=== PATIENT | female | born 1990 | race Caucasian/White ===

== ENCOUNTER 2018-11-07 12:46 | Inpatient (IN) | payer MEDICAID ==
[~2018-11-07] VITALS: Ht 162.6 cm; Wt 56.7 kg
[2018-11-07] MEDS ORDERED: MAGNESIUM SULFATE 2 GM, MULTIVITAMINS 10 ML, THIAMINE 100 MG, FOLIC ACID 1 MG in SOD CH... IV STA (15:18)
[2018-11-07] MEDS ORDERED: SOD CHLORIDE 0.9% 1,000 ML IV STA (15:18)
[2018-11-07] MEDS ORDERED: LORAZEPAM 2 MG INJ IV STA (15:18)
[2018-11-07] MEDS ORDERED: LEVETIRACETAM 1000 MG (PMX) 100 ML IVPB STA (15:21)
[2018-11-07] MEDS ORDERED: LORAZEPAM 2 MG INJ IV ONE ×2 (16:30→22:00)
[2018-11-07] MEDS ORDERED: NITROFURANTOIN (SR) 100 MG CAP PO ONE (18:30)
[2018-11-07] MEDS ORDERED: CHLORDIAZEPOXIDE 25 MG CAP PO ONE (18:30)
[2018-11-07] MEDS ORDERED: POTASSIUM CHLORIDE 100 ML IVPB ONE (18:30)
[2018-11-07] MEDS ORDERED: THIAMINE 100 MG TAB PO ONE (19:00)
--- NOTE | 2018-11-07 19:50 | ERD ---
ER Documentation Chief Complaint Chief Complaint PSYCH GARTH, STATES HAVING SEIZURES, DENIES SI/HI HPI This is a 28-year-old female is brought into the emergency department by her boyfriend. The patient has a remote history of bulimia and anorexia. She also has a history of alcohol abuse. Her boyfriend brought her in because he was concerned that she appeared more confused. He stated she is been hallucinating for the past several days. The patient indicates that her last consumption of alcohol 6 days prior to arrival. She did have a witnessed tonic-clonic seizure 24 hours ago. The patient denies a headache. She said no fevers no shaking no chills. She denies any neck pain. Her boyfriend states she believes she is b een placed on Keppra as she has had withdrawal seizures in the past. The patient cannot remember the medications that she took. She does believe she also took Ativan. The patient denies any suicidal homicidal thoughts or ideations. ROS All systems reviewed and are negative except as per history of present illness. Allergies Allergies: Uncoded Allergies: PENICILLIN (Allergy, Unknown, unraised red skin, diarrhea, flushed sensation, 11/07/18) PMhx/Soc History of Surgery: No Anesthesia Reaction: No Hx Neurological Disorder: Yes (Seizures (DT's) Epilepsi unk) Hx Respiratory Disorders: No Hx Cardiac Disorders: No Hx Psychiatric Problems: Yes (Eating disorder, Anxiety, Depression) Hx Miscellaneous Medical Probl: No Hx Alcohol Use: Yes Hx Substance Use: Yes (Marijuana) Hx Tobacco Use: Yes Smoking Status: Current some day smoker Physical Exam Vitals Vital Signs Date Temp Pulse Resp B/P (MAP) Pulse Ox O2 O2 Flow FiO2 Time Delivery Rate 11/07/18 98.0 94 16 109/68 97 Room Air 17:00 (82) 11/07/18 98.0 117 18 117/87 99 Room Air 15:00 (97) 11/07/18 98.0 127 18 153/63 99 13:00 (93) Physical Exam Constitutional:Well-developed. Well-nourished. HEENT:Normocephalic. Atraumatic no nasal septal hematoma no hemotympanum .Pupils were equal round reactive to light. Moist mucous membranes.No tonsillar exudates. Neck: No nuchal rigidity. No lymphadenopathy. No posterior cervical spine tenderness or step-offs. Respiratory: Not using accessory muscles of respiration.Lungs were clear to auscultation bilaterally. No rhonchi. No rales. No wheezing. Cardiovascular: Regular rate regular rhythm.No murmurs. No rubs were appreciated.S1, S2 normal. Distal pulses are palpable 2+ bilaterally. GI: Abdomen was soft. Nontender. Non Distended. No pulsatile abdominal masses or bruits. No rebound. No guarding. Bowel sounds were present and normal. Muscle skeletal: Full range of motion of both the upper and lower extremities bilaterally.Normal muscle tone.No assymetrical calf tenderness or swelling. Skin: No petechia, no purpura. No lesions on the palms or the soles of the feet. No maculopapular rash. NEURO: Patient was alert, awake, orientated x3.No facial droop. Gait observed and normal with no ataxia.Speech had regular rate and rhythm. No focal neurological deficits. PSYCH: The patient is not experiencing any suicidal homicidal thoughts or ideations. The patient is experiencing tactile and visual hallucinations. Result Diagram: 11/07/18 1532 11/07/18 1532 Results 24 hrs Laboratory Tests Test 11/07/18 15:32 White Blood Count 8.3 10^3/ul Red Blood Count 3.18 10^6/ul Hemoglobin 11.9 g/dl Hematocrit 34.6 % Mean Corpuscular Volume 108.8 fl Mean Corpuscular Hemoglobin 37.4 pg Mean Corpuscular Hemoglobin Concent 34.4 g/dl Red Cell Distribution Width 11.8 % Platelet Count 128 10^3/UL Mean Platelet Volume 10.8 fl Immature Granulocytes % 0.700 % Neutrophils % % Segmented Neutrophils % (Manual) 75 % Lymphocytes % % Lymphocytes % (Manual) 14 % Reactive Lymphocytes % (Manual) 2 % Monocytes % % Monocytes % (Manual) 9 % Eosinophils % % Basophils % % Nucleated Red Blood Cells % 0.0 /100WBC Immature Granulocytes # 0.060 10^3/ul Neutrophils # 10^3/ul Lymphocytes (Manual) 1.1 10^3/ul Lymphocytes # 10^3/ul Reactive Lymphocytes # 0.1 10^3/ul Monocytes # 10^3/ul Monocytes # (Manual) 0.7 10^3/ul Eosinophils # 10^3/ul Basophils # 10^3/ul Nucleated Red Blood Cells # 10^3/ul Platelet Estimate NORMAL Giant Platelets 7 % Anisocytosis 1+ Macrocytosis 1+ Prothrombin Time 13.0 Sec Prothrombin Time Ratio 1.0 INR International Normalized Ratio 0.97 Activated Partial Thromboplast Time 26.5 Sec Urine Color RANDALL Urine Clarity CLOUDY Urine pH 5.0 Urine Specific [place] 1.026 Urine Ketones 1+ mg/dL Urine Nitrite NEGATIVE mg/dL Urine Bilirubin NEGATIVE mg/dL Urine Urobilinogen NEGATIVE mg/dL Urine Leukocyte Esterase 1+ Jesus/ul Urine Microscopic RBC 1 /HPF Urine Microscopic WBC 13 /HPF Urine Squamous Epithelial Cells MANY /HPF Urine Mucus FEW /HPF Urine Hemoglobin NEGATIVE mg/dL Urine Glucose NEGATIVE mg/dL Urine Total Protein 2+ mg/dl Urine Test NEGATIVE Sodium Level 137 mmol/L Potassium Level 2.9 mmol/L Chloride Level 93 mmol/L Carbon Dioxide Level 26 mmol/L Anion Gap 18 Blood Urea Nitrogen 16 mg/dl Creatinine 0.59 mg/dl Est Glomerular Filtrat Rate mL/min > 60 mL/min Glucose Level 90 mg/dl Calcium Level 10.6 mg/dl Total Bilirubin 1.2 mg/dl Direct Bilirubin 0.00 mg/dl Indirect Bilirubin 1.2 mg/dl Aspartate Amino Transf (AST/SGOT) 108 IU/L Alanine Aminotransferase (ALT/SGPT) 66 IU/L Alkaline Phosphatase 104 IU/L Total Protein 9.1 g/dl Albumin 5.2 g/dl Globulin 3.90 g/dl Albumin/Globulin Ratio 1.33 Salicylates Level < 1.0 mg/dl Urine Opiates Screen Negative Acetaminophen Level < 10.0 ug/ml Urine Barbiturates Negative Urine Amphetamines Screen Negative Urine Benzodiazepines Screen Negative Urine Cocaine Screen Negative Urine Cannabinoids Positive Ethyl Alcohol Level < 10.0 mg/dl Current Medications Medications Dose Sig/Erasmo Start Time Status Last (Trade) Ordered Route PRN Stop Time Admin Dose Reason Admin Sodium 1,000 ml @ Q1H STAT 11/07/18 DC 11/07/18 Chloride 1,000 mls/hr IV 15:18 11/07/18 16:11 16:17 Magnesium 1,015.2 ml Q2H2M STAT 11/07/18 DC 11/07/18 Sulfate 2 @ 500 mls/ IV 15:18 11/07/18 16:09 gm/ hr 17:19 Multivitamins 10 ml/Thiamine HCl 100 mg/Folic Acid 1 mg/Sodium Chloride Lorazepam 1 mg ONCE STAT 11/07/18 DC 11/07/18 (Ativan) IV 15:18 11/07/18 16:09 15:21 100 ml @ ONCE STAT 11/07/18 DC 11/07/18 Levetiracetam 400 mls/hr IVPB 15:21 11/07/18 16:09 15:35 Lorazepam 1 mg ONCE ONCE 11/07/18 DC 11/07/18 (Ativan) IV 16:30 11/07/18 16:34 16:31 Potassium 100 ml @ ONCE ONCE 11/07/18 11/07/18 Chloride 50 mls/hr IVPB 18:30 11/07/18 18:42 20:29 100 mg ONCE ONCE 11/07/18 DC 11/07/18 Nitrofurantoi PO 18:30 11/07/18 18:42 n 18:31 Macrocrystals (Macrobid) 75 mg ONCE ONCE 11/07/18 DC 11/07/18 Chlordiazepox PO 18:30 11/07/18 18:42 sanjay 18:32 (Librium) Thiamine 100 mg ONCE ONCE 11/07/18 DC HCl PO 19:00 11/07/18 (Vitamin B1) 19:01 Procedures/MDM The patient presented to the emergency department with an acute and persistent c hange in their mental status. The differential diagnosis is diverse however reversible causes such as hypoglycemia, opiate overdose, thiamine deficiency were immediately considered. The patient was placed on a court monitor, continuous pulse oximetry and IV access was established. The patients airway was secure however hypoxic events such as anemia, shock, or severe pulmonary disease were all considered as etiologies in this patients presentation. Circulation assessed with good cap refill and did not require fluids or pressure support. Finger stick for rapid glucose determined to be normal. I did obtain a CT scan the patient said there is no intracerebral hemorrhage mass-effect or midline shift. The patient no physical exam findings to suggest meningitis that she was afebrile with no nuchal rigidity and denied cephalgia. The patient's boyfriend was present for the examination was able to provide a significant amount of history. They live together and have been a couple for over 1 year. He indicates that the patient does have a severe alcohol problem and has been abstinent from alcohol for roughly 6 days. The patient stated that she had been on Keppra and stated she had epilepsy. However the boyfriend stated that he believes her seizures were result of alcohol withdrawal. She did receive IV Keppra in the emergency department. The patient serum ethanol was undetected. It was concern that the patient could be experiencing delirium tremors as well as Warnicke's encephalopathy. She did receive vitamin B1 to supplement for possible Warnicke's encephalopathy. She also received Ativan and she also became very agitated. She was given Librium and a banana bag. The patient was also given IV potassium to for treatment of her hypokalemia with a potassium of 2.9 12 Lead EKG tracing ordered and reviewed by myself showed: Normal sinus rhythm of 85 bpm and no arrhythmia. IA interval normal. QRS duration normal. No ST segment elevation No ST segment depression. No changes consistent with acute ischemia. Critical Care: Time: 80 minutes Treatments/Evaluations: Close monitoring and treatment of unstable vital signs, cardiorespiratory, and neurologic status, while maintaining tight balance of fluid, respiratory, and cardiac interventions. Time does not include performing any of the above billable procedures. Departure Diagnosis: Primary Impression: Alcohol withdrawal with delirium Additional Impressions: Hypokalemia DTs (delirium tremens) Condition: Serious ESTER TAVAREZ MD Nov 07, 2018 19:47
[2018-11-07] MEDS ORDERED: ACETAMINOPHEN 325 MG TAB PO PRN ×2 (20:00→23:00)
[2018-11-07] MEDS ORDERED: ONDANSETRON 4 MG INJ IV PRN ×2 (20:00→23:00)
[2018-11-07 22:00] VITALS: PULSE 80
[2018-11-07 22:07] VITALS: BP 110/79; RESP 18; Ht 162.6 cm; Wt 56.7 kg
[2018-11-07] MEDS ORDERED: DOCUSATE SODIUM 100 MG CAP PO PRN (23:00)
[2018-11-07] MEDS ORDERED: hydrALAzine 20 MG INJ IV PRN (23:00)
[2018-11-07] MEDS ORDERED: HYDROCODONE/APAP (5/325) TAB PO PRN (23:00)
[2018-11-07] MEDS ORDERED: ALBUTEROL/IPRATROPIUM (NEB) 3 ML AMP HHN PRN (23:00)
[2018-11-07] MEDS ORDERED: NACL 0.9% 3 ML SYG IV SCH (23:00)
[2018-11-07] MEDS ORDERED: NITROGLYCERIN (SL) 0.4 MG TAB SL PRN (23:00)
[2018-11-07] MEDS ORDERED: MAGNESIUM HYDROXIDE 30ML CUP PO PRN (23:00)
[2018-11-07] MEDS ORDERED: morphine 2 MG INJ IV PRN (23:00)
[2018-11-07] MEDS ORDERED: LORAZEPAM 2 MG INJ IV PRN ×2 (23:00)
[2018-11-07] MEDS: SOD CHLORIDE 0.9% 1,000 ML IV SCH (23:03)
[2018-11-07] MEDS: LEVOFLOXACIN 750MG/D5W (PMX) 150 ML IVPB SCH (23:03)
[2018-11-07] MEDS: FAMOTIDINE 20 MG INJ IV SCH (23:12)
[2018-11-08] VITALS (11 sets, daily range): BP systolic 99–129; BP diastolic 71–93; PULSE 80–104; RESP 16–20
[2018-11-08] MEDS: LEVETIRACETAM 1000 MG (PMX) 100 ML IVPB SCH ×2 (00:41→08:33)
[2018-11-08] MEDS ORDERED: CEPASTAT LOZENGE MT PRN (04:00)
--- NOTE | 2018-11-08 04:24 | HP ---
Date/Time of Note Date/Time of Note DATE: 11/08/18 TIME: 04:17 Assessment/Plan VTE Prophylaxis SCD applied (from Nsg): No SCD contraindicated: other Pharmacological prophylaxis: heparin Lines/Catheters IV Catheter Type (from Nrsg): Peripheral IV Urinary Cath still in place: No Assessment/Plan Hospital Course Assessment and plan: 28-year-old female past with history of eating disorder, anxiety and depression, alcohol abuse, who presents with confusion and altered mental status, likely secondary to alcohol use, also with seizure activity. 1. Altered mental status: Again likely secondary to alcohol use, there is also could be a postictal component since the patient apparently may have seized prior to admission. -Continue neuro checks on the patient, obtain social services specialist consult, add Librium 3 times daily and Ativan q. 30 minutes as needed seizure activity -We will obtain EEG and consider neurology consult as well since she apparently did have seizure activity continue with IV Keppra twice daily as well -Again for alcohol use, banana bag, she did receive thiamine in the ER, Librium and Ativan. 2. Anxiety depression: Given patient's recent bout with alcohol, history of eating disorder, and history of anxiety depression there is a telemetry psychiatry consult pending, follow-up results of this Result Diagram: 11/07/18 1532 11/07/18 1532 Results 24hrs Laboratory Tests Test 11/07/18 15:32 White Blood Count 8.3 Red Blood Count 3.18 L Hemoglobin 11.9 L Hematocrit 34.6 L Mean Corpuscular Volume 108.8 H Mean Corpuscular Hemoglobin 37.4 H Mean Corpuscular Hemoglobin Concent 34.4 Red Cell Distribution Width 11.8 Platelet Count 128 L Mean Platelet Volume 10.8 H Immature Granulocytes % 0.700 H Neutrophils % Segmented Neutrophils % (Manual) 75 Lymphocytes % Lymphocytes % (Manual) 14 L Reactive Lymphocytes % (Manual) 2 H Monocytes % Monocytes % (Manual) 9 Eosinophils % Basophils % Nucleated Red Blood Cells % 0.0 Immature Granulocytes # 0.060 H Neutrophils # Lymphocytes (Manual) 1.1 Lymphocytes # Reactive Lymphocytes # 0.1 H Monocytes # Monocytes # (Manual) 0.7 Eosinophils # Basophils # Nucleated Red Blood Cells # Platelet Estimate NORMAL Giant Platelets 7 H Anisocytosis 1+ Macrocytosis 1+ Prothrombin Time 13.0 Prothrombin Time Ratio 1.0 INR International Normalized Ratio 0.97 Activated Partial Thromboplast Time 26.5 Urine Color RANDALL Urine Clarity CLOUDY A Urine pH 5.0 Urine Specific [place] 1.026 Urine Ketones 1+ H Urine Nitrite NEGATIVE Urine Bilirubin NEGATIVE Urine Urobilinogen NEGATIVE Urine Leukocyte Esterase 1+ H Urine Microscopic RBC 1 Urine Microscopic WBC 13 H Urine Squamous Epithelial Cells MANY A Urine Mucus FEW A Urine Hemoglobin NEGATIVE Urine Glucose NEGATIVE Urine Total Protein 2+ H Urine Test NEGATIVE Sodium Level 137 Potassium Level 2.9 *L Chloride Level 93 L Carbon Dioxide Level 26 Anion Gap 18 H Blood Urea Nitrogen 16 Creatinine 0.59 Est Glomerular Filtrat Rate mL/min > 60 Glucose Level 90 Calcium Level 10.6 H Total Bilirubin 1.2 Direct Bilirubin 0.00 Indirect Bilirubin 1.2 H Aspartate Amino Transf (AST/SGOT) 108 H Alanine Aminotransferase (ALT/SGPT) 66 Alkaline Phosphatase 104 Total Protein 9.1 H Albumin 5.2 H Globulin 3.90 H Albumin/Globulin Ratio 1.33 Free Thyroxine 1.34 Salicylates Level < 1.0 L Urine Opiates Screen Negative Acetaminophen Level < 10.0 L Urine Barbiturates Negative Urine Amphetamines Screen Negative Urine Benzodiazepines Screen Negative Urine Cocaine Screen Negative Urine Cannabinoids Positive Ethyl Alcohol Level < 10.0 H HPI/ROS Admit Date/Time Admit Date/Time Nov 07, 2018 at 19:53 Hx of Present Illness 28-year-old female past with history of eating disorder, anxiety and depression, alcohol abuse, who presents with confusion and altered mental status. Patient was brought in by her boyfriend, apparently she quit drinking cold turkey 6 days ago. There was also witnessed seizure that occurred 24 hours ago. Apparently no prior history of this. Patient is also having hallucinating thoughts per boyfriend. No upper or lower GI bleeding, diarrhea constipation, fevers or chills. When she came in today she was found with elevated blood alcohol level and drug screen was positive for weed. She was given thiamine as there was a concern of Wernicke's encephalopathy in the ER, and also received banana bag. Head CT was performed in the ER that did not show any acute findings. PMH/Family/Social Past Medical History Medications Current Medications IV Flush (NS 3 ml) 3 ml PER PROTOCOL IV ; Start 11/07/18 at 23:00 Ondansetron HCl (Zofran Inj) 4 mg Q6H PRN IV NAUSEA/VOMITING; Start 11/07/18 at 23:00 Acetaminophen (Tylenol Tab) 650 mg Q6H PRN PO .PAIN 1-3 OR TEMP; Start 11/07/18 at 23:00 Acetaminophen/ Hydrocodone Bitart ([place] (5/325)) 1 tab Q6H PRN PO .MOD PAIN 4- 6; Start 11/07/18 at 23:00 Morphine Sulfate (morphine) 2 mg Q4H PRN IV .SEVERE PAIN 7-10; Start 11/07/18 at 23:00 Docusate Sodium (Colace) 100 mg Q12H PRN PO .CONSTIPATION; Start 11/07/18 at 23:00 Magnesium Hydroxide (Milk Of Mag) 30 ml DAILY PRN PO .CONSTIPATION; Start 11/07/18 at 23:00 Famotidine (Pepcid Iv) 20 mg DAILY IV Last administered on 11/07/18at 23:12; Admin Dose 20 MG; Start 11/07/18 at 23:00 Heparin Sodium (Porcine) (Heparin (5000 Units/1ml)) 5,000 unit Q12 SC ; Start 11/08/18 at 09:00 Lorazepam (Ativan) 1 mg Q1H PRN IV SEIZURES; Start 11/07/18 at 23:00 Sodium Chloride 1,000 ml @ 100 mls/hr Q10H IV Last administered on 11/07/18at 23:03; Admin Dose 100 MLS/HR; Start 11/07/18 at 22:33 Albuterol/ Ipratropium (Duoneb) 3 ml Q4H RESP THERAPY PRN HHN SHORTNESS OF BREATH; Start 11/07/18 at 23:00 Levofloxacin/ Dextrose 150 ml @ 100 mls/hr Q24H IVPB Last administered on 11/07/18at 23:03; Admin Dose 100 MLS/HR; Start 11/07/18 at 23:00 Hydralazine HCl (Apresoline) 10 mg Q6H PRN IV ELEVATED BLOOD PRESSURE; Start 11/07/18 at 23:00 Clonidine (Catapres) 0.1 mg Q6H PRN PO ELEVATED BLOOD PRESSURE; Start 11/07/18 at 23:00 Nitroglycerin (Nitroglycerin (Sl Tab) 0.4 Mg) 1 tab Q5M PRN SL ANGINA; Start 11/07/18 at 23:00 Multivitamins 10 ml/Thiamine HCl 100 mg/Folic Acid 1 mg/Sodium Chloride 1,011.2 ml @ 125 mls/ hr DAILY@09 IVPB ; Start 11/08/18 at 09:00 Chlordiazepoxide (Librium) 50 mg TID PO ; Start 11/08/18 at 09:00 Levetiracetam 100 ml @ 400 mls/hr Q12 IVPB Last administered on 11/08/18at 00:41; Admin Dose 400 MLS/HR; Start 11/08/18 at 01:00 Lorazepam (Ativan) 1 mg Q1H PRN IV CONTROL WITHDRAWAL SYMPTOMS; Start 11/07/18 at 23:00 Phenol (Cepastat Lozenge) 1 lozenge Q1H PRN MT COUGH; Start 11/08/18 at 04:00 Coded Allergies: Penicillins (Unverified Allergy, Intermediate, UNRAISED RED SKIN, DIARRHEA, FLUSHED SENSATION, 11/08/18) Uncoded Allergies: PENICILLIN (Allergy, Unknown, unraised red skin, diarrhea, flushed sensation, 11/07/18) Social History Alcohol Use: heavy Smoking Status: Light tobacco smoker Drug Use: marijuana Exam/Review of Systems Vital Signs Vitals Vital Signs Date Temp Pulse Resp B/P (MAP) Pulse Ox O2 O2 Flow FiO2 Time Delivery Rate 11/08/18 98.4 96 18 129/93 96 Room Air 03:36 (105) Exam Exam Gen: Lying in bed, occasionally tremors Head: Atraumatic. Eyes: Normal Conjunctiva. ENT: Normal External Ears, Nose and Mouth. Neck: Full range of motion. No meningismus. Resp: Clear to auscultation bilaterally. Cardio: Regular rate and rhythm. Abd: Soft, nondistended, normal bowel sounds, non tender. Ext: No lower extremity edema bilaterally Neuro: No focal deficits DEVIKA PETERSEN Nov 08, 2018 04:24
[2018-11-08] MEDS: SOD CHLORIDE 0.9% 1,000 ML IV SCH ×2 (08:33→18:33)
[2018-11-08] MEDS: FAMOTIDINE 20 MG INJ IV SCH (08:33)
[2018-11-08] MEDS: CHLORDIAZEPOXIDE 25 MG CAP PO SCH ×3 (08:33→20:27)
[2018-11-08] MEDS: MULTIVITAMINS 10 ML, THIAMINE 100 MG, FOLIC ACID 1 MG in SOD CHLORIDE 0.9% 1,000 ML IVPB SCH (09:57)
[2018-11-08] MEDS: HEPARIN 5,000 UNIT/1 ML VIAL SC SCH ×2 (10:20→20:35)
--- NOTE | 2018-11-08 13:17 | CONSI ---
Assessment/Plan Assessment/Plan Assessment/Plan (Recall) 28 F c/ Hx of ETOH abuse...who presents for evaluation following recurrent seizures in the context of recent ETOH cessation. The clinical picture suggests provoked seizures due to ETOH withdrawal. Epilepsy is less likely.. Head CT is without obvious acute intracranial pathology. P: Await EEG Hold Keppra for now, pending the above Ativan iv prn prolonged seizure or cluster [place] as necessary Other management per primary Will follow clinically Consultation Date/Type/Reason Admit Date/Time Nov 07, 2018 at 19:53 Type of Consult Neurology Reason for Consultation seizures Requesting Provider: DEVIKA PETERSEN Date/Time of Note DATE: 11/08/18 TIME: 13:10 Hx of Present Illness Patient is a limited historian. She notes that she has had seizures in the context of ETOH withdrawal previously. It is elsewhere noted: 28-year-old female past with history of eating disorder, anxiety and depression, alcohol abuse, who presents with confusion and altered mental status. Patient was brought in by her boyfriend, apparently she quit drinking cold turkey 6 days ago. There was also witnessed seizure that occurred 24 hours ago. Apparently no prior history of this. Patient is also having hallucinating thoughts per boyfriend. No upper or lower GI bleeding, diarrhea constipation, fevers or chills. When she came in today she was found with elevated blood alcohol level and drug screen was positive for weed. She was given thiamine as there was a co ncern of Wernicke's encephalopathy in the ER, and also received banana bag. Head CT was performed in the ER that did not show any acute findings. Limited by mental status Objective Exam Vitals Vital Signs Date Temp Pulse Resp B/P (MAP) Pulse Ox O2 O2 Flow FiO2 Time Delivery Rate 11/08/18 97.8 80 16 99/71 (80) 98 11:29 11/08/18 Room Air 03:36 Intake and Output 11/07/18 11/07/18 11/08/18 1515:00 23:00 07:00 IntakeIntake Total 700 ml BalanceBalance 700 ml Exam PE: Gen Appearance: No Apparent Distress HEENT: Normocephalic Abdomen: Soft Extremities: Dry NE: The patient was lethargic... grossly oriented to person, hospital, month, and year.... Language was normal. Fund of knowledge was normal. Pupils were equal and reactive to light. There was no afferent pupillary defect. Visual pena were normal. Funduscopic examination was limited. Extra-ocular movements were full. Ptosis was absent. There was no nystagmus. Facial sensation was normal. Face was symmetric with normal strength. Hearing was intact. Palate movements were normal. Neck strength was normal. There was normal tongue bulk and speed of movement. Tone was normal. Muscle bulk was normal. I did not see fasciculations. Arms and legs were symmetric. Vibration sensation was normal. Temperature and pinprick sensation was normal. Rapid alternating movements were normal. There was no dysmetria. There was no intention tremor. Gait was deferred due to bedrest. Arm and leg reflexes were symmetric. Stanford's sign was absent. Plantar responses were flexor. Results Result Diagram: 11/08/1822 11/08/18 0622 Results 24hrs Laboratory Tests Test 11/07/18 15:32 11/08/18 06:22 White Blood Count 8.3 8.1 Red Blood Count 3.18 L 3.08 L Hemoglobin 11.9 L 11.3 L Hematocrit 34.6 L 34.1 L Mean Corpuscular Volume 108.8 H 110.7 H Mean Corpuscular Hemoglobin 37.4 H 36.7 H Mean Corpuscular Hemoglobin Concent 34.4 33.1 Red Cell Distribution Width 11.8 11.9 Platelet Count 128 L 128 L Mean Platelet Volume 10.8 H 10.8 H Immature Granulocytes % 0.700 H 0.700 H Neutrophils % 75.7 Segmented Neutrophils % (Manual) 75 Lymphocytes % 8.1 L Lymphocytes % (Manual) 14 L Reactive Lymphocytes % (Manual) 2 H Monocytes % 13.6 H Monocytes % (Manual) 9 Eosinophils % 1.2 Basophils % 0.7 Nucleated Red Blood Cells % 0.0 0.0 Immature Granulocytes # 0.060 H 0.060 H Neutrophils # 6.1 Lymphocytes (Manual) 1.1 Lymphocytes # 0.7 L Reactive Lymphocytes # 0.1 H Monocytes # 1.1 H Monocytes # (Manual) 0.7 Eosinophils # 0.1 Basophils # 0.1 Nucleated Red Blood Cells # 0.0 Platelet Estimate NORMAL Giant Platelets 7 H Anisocytosis 1+ Macrocytosis 1+ Prothrombin Time 13.0 Prothrombin Time Ratio 1.0 INR International Normalized Ratio 0.97 Activated Partial Thromboplast Time 26.5 Urine Color RANDALL Urine Clarity CLOUDY A Urine pH 5.0 Urine Specific [place] 1.026 Urine Ketones 1+ H Urine Nitrite NEGATIVE Urine Bilirubin NEGATIVE Urine Urobilinogen NEGATIVE Urine Leukocyte Esterase 1+ H Urine Microscopic RBC 1 Urine Microscopic WBC 13 H Urine Squamous Epithelial Cells MANY A Urine Mucus FEW A Urine Hemoglobin NEGATIVE Urine Glucose NEGATIVE Urine Total Protein 2+ H Urine Test NEGATIVE Sodium Level 137 138 Potassium Level 2.9 *L 3.0 L Chloride Level 93 L 104 # Carbon Dioxide Level 26 22 Anion Gap 18 H 12 Blood Urea Nitrogen 16 6 #L Creatinine 0.59 0.49 Est Glomerular Filtrat Rate mL/min > 60 > 60 Glucose Level 90 72 Calcium Level 10.6 H 9.0 Total Bilirubin 1.2 Direct Bilirubin 0.00 Indirect Bilirubin 1.2 H Aspartate Amino Transf (AST/SGOT) 108 H Alanine Aminotransferase (ALT/SGPT) 66 Alkaline Phosphatase 104 Total Protein 9.1 H Albumin 5.2 H Globulin 3.90 H Albumin/Globulin Ratio 1.33 Free Thyroxine 1.34 1.30 Salicylates Level < 1.0 L Urine Opiates Screen Negative Acetaminophen Level < 10.0 L Urine Barbiturates Negative Urine Amphetamines Screen Negative Urine Benzodiazepines Screen Negative Urine Cocaine Screen Negative Urine Cannabinoids Positive Ethyl Alcohol Level < 10.0 H Hemoglobin A1c 4.7 Phosphorus Level 3.0 Magnesium Level 1.7 Triglycerides Level 57 Cholesterol Level 171 LDL Cholesterol, Calculated 80 HDL Cholesterol 80 Cholesterol/HDL Ratio 2.1 Thyroid Stimulating Hormone (TSH) 0.607 Past Medical History reviewed Medications Current Medications IV Flush (NS 3 ml) 3 ml PER PROTOCOL IV ; Start 11/07/18 at 23:00 Ondansetron HCl (Zofran Inj) 4 mg Q6H PRN IV NAUSEA/VOMITING; Start 11/07/18 at 23:00 Acetaminophen (Tylenol Tab) 650 mg Q6H PRN PO .PAIN 1-3 OR TEMP; Start 11/07/18 at 23:00 Acetaminophen/ Hydrocodone Bitart ([place] (5/325)) 1 tab Q6H PRN PO .MOD PAIN 4- 6; Start 11/07/18 at 23:00 Morphine Sulfate (morphine) 2 mg Q4H PRN IV .SEVERE PAIN 7-10; Start 11/07/18 at 23:00 Docusate Sodium (Colace) 100 mg Q12H PRN PO .CONSTIPATION; Start 11/07/18 at 23:00 Magnesium Hydroxide (Milk Of Mag) 30 ml DAILY PRN PO .CONSTIPATION; Start 11/07/18 at 23:00 Famotidine (Pepcid Iv) 20 mg DAILY IV Last administered on 11/08/18 08:33; Admin Dose 20 MG; Start 11/07/18 at 23:00 Heparin Sodium (Porcine) (Heparin (5000 Units/1ml)) 5,000 unit Q12 SC Last administered on 11/08/18at 10:20; Admin Dose 5,000 UNIT; Start 11/08/18 at 09:00 Lorazepam (Ativan) 1 mg Q1H PRN IV SEIZURES; Start 11/07/18 at 23:00 Sodium Chloride 1,000 ml @ 100 mls/hr Q10H IV Last administered on 11/08/18 08:33; Admin Dose 100 MLS/HR; Start 11/07/18 at 22:33 Albuterol/ Ipratropium (Duoneb) 3 ml Q4H RESP THERAPY PRN HHN SHORTNESS OF BREATH; Start 11/07/18 at 23:00 Levofloxacin/ Dextrose 150 ml @ 100 mls/hr Q24H IVPB Last administered on 11/07/18at 23:03; Admin Dose 100 MLS/HR; Start 11/07/18 at 23:00 Hydralazine HCl (Apresoline) 10 mg Q6H PRN IV ELEVATED BLOOD PRESSURE; Start 11/07/18 at 23:00 Clonidine (Catapres) 0.1 mg Q6H PRN PO ELEVATED BLOOD PRESSURE; Start 11/07/18 at 23:00 Nitroglycerin (Nitroglycerin (Sl Tab) 0.4 Mg) 1 tab Q5M PRN SL ANGINA; Start 11/07/18 at 23:00 Multivitamins 10 ml/Thiamine HCl 100 mg/Folic Acid 1 mg/Sodium Chloride 1,011.2 ml @ 125 mls/ hr DAILY@09 IVPB Last administered on 11/08/18at 09:57; Admin Dose 125 MLS/HR; Start 11/08/18 at 09:00 Chlordiazepoxide (Librium) 50 mg TID PO Last administered on 11/08/18 08:33; Admin Dose 50 MG; Start 11/08/18 at 09:00 Levetiracetam 100 ml @ 400 mls/hr Q12 IVPB Last administered on 11/08/18at 08:33; Admin Dose 400 MLS/HR; Start 11/08/18 at 01:00 Lorazepam (Ativan) 1 mg Q1H PRN IV CONTROL WITHDRAWAL SYMPTOMS; Start 11/07/18 at 23:00 Phenol (Cepastat Lozenge) 1 lozenge Q1H PRN MT COUGH; Start 11/08/18 at 04:00 Allergies: Coded Allergies: Penicillins (Unverified Allergy, Intermediate, UNRAISED RED SKIN, DIARRHEA, FLUSHED SENSATION, 11/08/18) Uncoded Allergies: PENICILLIN (Allergy, Unknown, unraised red skin, diarrhea, flushed sensation, 11/07/18) Social History Alcohol Use: heavy Smoking Status: Light tobacco smoker Drug Use: marijuana ALO HOOD Nov 08, 2018 13:17
[2018-11-08] MEDS ORDERED: POTASSIUM CHLORIDE (SR) 20 MEQ TAB PO STA (14:37)
--- NOTE | 2018-11-08 18:00 | PN ---
Date/Time of Note Date/Time of Note DATE: 11/08/18 TIME: 17:49 Assessment/Plan VTE Prophylaxis Risk score (from Nsg)>0 risk: 1 SCD applied (from Nsg): Yes Pharmacological prophylaxis: heparin Lines/Catheters IV Catheter Type (from Nrsg): Peripheral IV Urinary Cath still in place: No Assessment/Plan Hospital Course Assessment 1. ALOC with suspect DTs. Patient did report she was a heavy alcohol drinker from morning until night. She states that she stopped drinking on her own for o dat a week. S Continue on Librium. Ativan every 30 minutes as needed for seizure activity. Neurologist following. EEG results pending. Continue hydration. Will get dialysis social worker follow-up with 2. EtOH abuse. Will get dialysis social worker to follow. Cessation is advised. 3. History of anxiety/depression. Tentative plan for psychiatric consultation. Will follow up. Disposition of plan. Continue seizure precautions. EEG results pending. Continue hydration. automotive worker foreman consultation to follow. Discussed plan of care with Dr. Flores Result Diagram: 11/08/18 0622 11/08/18 0622 Results 24hrs Laboratory Tests Test 11/08/18 06:22 White Blood Count 8.1 Red Blood Count 3.08 L Hemoglobin 11.3 L Hematocrit 34.1 L Mean Corpuscular Volume 110.7 H Mean Corpuscular Hemoglobin 36.7 H Mean Corpuscular Hemoglobin Concent 33.1 Red Cell Distribution Width 11.9 Platelet Count 128 L Mean Platelet Volume 10.8 H Immature Granulocytes % 0.700 H Neutrophils % 75.7 Lymphocytes % 8.1 L Monocytes % 13.6 H Eosinophils % 1.2 Basophils % 0.7 Nucleated Red Blood Cells % 0.0 Immature Granulocytes # 0.060 H Neutrophils # 6.1 Lymphocytes # 0.7 L Monocytes # 1.1 H Eosinophils # 0.1 Basophils # 0.1 Nucleated Red Blood Cells # 0.0 Sodium Level 138 Potassium Level 3.0 L Chloride Level 104 # Carbon Dioxide Level 22 Anion Gap 12 Blood Urea Nitrogen 6 #L Creatinine 0.49 Est Glomerular Filtrat Rate mL/min > 60 Glucose Level 72 Hemoglobin A1c 4.7 Calcium Level 9.0 Phosphorus Level 3.0 Magnesium Level 1.7 Triglycerides Level 57 Cholesterol Level 171 LDL Cholesterol, Calculated 80 HDL Cholesterol 80 Cholesterol/HDL Ratio 2.1 Thyroid Stimulating Hormone (TSH) 0.607 Free Thyroxine 1.30 Subjective 24 Hr Interval Summary Free Text/Dictation still noted with some tremors. is alert and oriented during visit. Exam/Review of Systems Exam Vitals Vital Signs Date Temp Pulse Resp B/P (MAP) Pulse Ox O2 O2 Flow FiO2 Time Delivery Rate 11/08/18 97.5 95 16 102/72 99 15:52 (82) 11/08/18 Room Air 03:36 Intake and Output 11/07/18 11/07/18 11/08/18 1515:00 23:00 07:00 IntakeIntake Total 700 ml BalanceBalance 700 ml Constitutional: alert, oriented Psych: nl mood/affect Head: normocephalic Neck: supple, non-tender Respiratory: clear to auscultation Cardiovascular: regular rate and rhythm Gastrointestinal: soft, non-tender Neurological: OLIVE PACKER II-XII intact, nl mental status, nl speech Skin: nl turgor Results Results 24hrs Laboratory Tests Test 11/08/18 06:22 White Blood Count 8.1 Red Blood Count 3.08 L Hemoglobin 11.3 L Hematocrit 34.1 L Mean Corpuscular Volume 110.7 H Mean Corpuscular Hemoglobin 36.7 H Mean Corpuscular Hemoglobin Concent 33.1 Red Cell Distribution Width 11.9 Platelet Count 128 L Mean Platelet Volume 10.8 H Immature Granulocytes % 0.700 H Neutrophils % 75.7 Lymphocytes % 8.1 L Monocytes % 13.6 H Eosinophils % 1.2 Basophils % 0.7 Nucleated Red Blood Cells % 0.0 Immature Granulocytes # 0.060 H Neutrophils # 6.1 Lymphocytes # 0.7 L Monocytes # 1.1 H Eosinophils # 0.1 Basophils # 0.1 Nucleated Red Blood Cells # 0.0 Sodium Level 138 Potassium Level 3.0 L Chloride Level 104 # Carbon Dioxide Level 22 Anion Gap 12 Blood Urea Nitrogen 6 #L Creatinine 0.49 Est Glomerular Filtrat Rate mL/min > 60 Glucose Level 72 Hemoglobin A1c 4.7 Calcium Level 9.0 Phosphorus Level 3.0 Magnesium Level 1.7 Triglycerides Level 57 Cholesterol Level 171 LDL Cholesterol, Calculated 80 HDL Cholesterol 80 Cholesterol/HDL Ratio 2.1 Thyroid Stimulating Hormone (TSH) 0.607 Free Thyroxine 1.30 Medications Medication Current Medications IV Flush (NS 3 ml) 3 ml PER PROTOCOL IV ; Start 11/07/18 at 23:00 Ondansetron HCl (Zofran Inj) 4 mg Q6H PRN IV NAUSEA/VOMITING; Start 11/07/18 at 23:00 Acetaminophen (Tylenol Tab) 650 mg Q6H PRN PO .PAIN 1-3 OR TEMP; Start 11/07/18 at 23:00 Acetaminophen/ Hydrocodone Bitart ([place] (5/325)) 1 tab Q6H PRN PO .MOD PAIN 4- 6; Start 11/07/18 at 23:00 Morphine Sulfate (morphine) 2 mg Q4H PRN IV .SEVERE PAIN 7-10; Start 11/07/18 at 23:00 Docusate Sodium (Colace) 100 mg Q12H PRN PO .CONSTIPATION; Start 11/07/18 at 23:00 Magnesium Hydroxide (Milk Of Mag) 30 ml DAILY PRN PO .CONSTIPATION; Start 11/07/18 at 23:00 Heparin Sodium (Porcine) (Heparin (5000 Units/1ml)) 5,000 unit Q12 SC Last administered on 11/08/18at 10:20; Admin Dose 5,000 UNIT; Start 11/08/18 at 09:00 Lorazepam (Ativan) 1 mg Q1H PRN IV SEIZURES; Start 11/07/18 at 23:00 Sodium Chloride 1,000 ml @ 100 mls/hr Q10H IV Last administered on 11/08/18at 08:33; Admin Dose 100 MLS/HR; Start 11/07/18 at 22:33 Albuterol/ Ipratropium (Duoneb) 3 ml Q4H RESP THERAPY PRN HHN SHORTNESS OF B REATH; Start 11/07/18 at 23:00 Levofloxacin/ Dextrose 150 ml @ 100 mls/hr Q24H IVPB Last administered on 11/07/18at 23:03; Admin Dose 100 MLS/HR; Start 11/07/18 at 23:00 Hydralazine HCl (Apresoline) 10 mg Q6H PRN IV ELEVATED BLOOD PRESSURE; Start 11/07/18 at 23:00 Clonidine (Catapres) 0.1 mg Q6H PRN PO ELEVATED BLOOD PRESSURE; Start 11/07/18 at 23:00 Nitroglycerin (Nitroglycerin (Sl Tab) 0.4 Mg) 1 tab Q5M PRN SL ANGINA; Start 11/07/18 at 23:00 Multivitamins 10 ml/Thiamine HCl 100 mg/Folic Acid 1 mg/Sodium Chloride 1,011.2 ml @ 125 mls/ hr DAILY@09 IVPB Last administered on 11/08/18at 09:57; Admin Dose 125 MLS/HR; Start 11/08/18 at 09:00 Chlordiazepoxide (Librium) 50 mg TID PO Last administered on 11/08/18at 13:43; Admin Dose 50 MG; Start 11/08/18 at 09:00 Lorazepam (Ativan) 1 mg Q1H PRN IV CONTROL WITHDRAWAL SYMPTOMS; Start 11/07/18 at 23:00 Phenol (Cepastat Lozenge) 1 lozenge Q1H PRN MT COUGH; Start 11/08/18 at 04:00 Famotidine (Pepcid) 20 mg Q12 PO ; Start 11/08/18 at 21:00 GHADA FOFANA NP Nov 08, 2018 18:00
[2018-11-08] MEDS: FAMOTIDINE 20 MG TAB PO SCH (20:27)
[2018-11-08] MEDS: LEVOFLOXACIN 750MG/D5W (PMX) 150 ML IVPB SCH (23:10)
[2018-11-09] VITALS (12 sets, daily range): BP systolic 112–139; BP diastolic 78–99; PULSE 60–110; RESP 20–22
[2018-11-09] MEDS: SOD CHLORIDE 0.9% 1,000 ML IV SCH ×3 (04:37→20:41)
[2018-11-09] MEDS: MULTIVITAMINS 10 ML, THIAMINE 100 MG, FOLIC ACID 1 MG in SOD CHLORIDE 0.9% 1,000 ML IVPB SCH (08:41)
[2018-11-09] MEDS: CHLORDIAZEPOXIDE 25 MG CAP PO SCH ×3 (08:42→20:40)
[2018-11-09] MEDS: FAMOTIDINE 20 MG TAB PO SCH ×2 (08:42→20:40)
[2018-11-09] MEDS: HEPARIN 5,000 UNIT/1 ML VIAL SC SCH ×2 (08:59→21:00)
--- NOTE | 2018-11-09 11:10 | CONS ---
Assessment/Plan Assessment/Plan Assessment/Plan (Recall) 28 F c/ Hx of ETOH abuse...who presents for evaluation following recurrent seizures in the context of recent ETOH cessation. The clinical picture suggests provoked seizures due to ETOH withdrawal. Epilepsy is less likely.. Head CT is without obvious acute intracranial pathology. P: Await EEG Hold Keppra for now, pending the above Ativan iv prn prolonged seizure or cluster [place] as necessary Other management per primary Will follow clinically Consultation Date/Type/Reason Admit Date/Time Nov 07, 2018 at 19:53 Type of Consult Neurology Reason for Consultation seizures Requesting Provider: DEVIKA PETERSEN Date/Time of Note DATE: 11/09/18 TIME: 11:09 24 HR Interval Summary Free Text/Dictation Continues acute care Exam/Review of Systems Exam Vitals Vital Signs Date Temp Pulse Resp B/P (MAP) Pulse Ox O2 O2 Flow FiO2 Time Delivery Rate 11/09/18 102 08:00 11/09/18 98.4 20 112/80 99 07:49 (91) 11/08/18 Room Air 03:36 Intake and Output 11/08/18 11/08/18 11/09/18 1414:59 22:59 06:59 IntakeIntake Total 100 ml 240 ml 2530 ml BalanceBalance 100 ml 240 ml 2530 ml Results Result Diagram: 11/09/18 0555 11/09/18 0555 Results 24hrs Laboratory Tests Test 11/09/18 05:55 White Blood Count 6.4 # Red Blood Count 3.02 L Hemoglobin 11.3 L Hematocrit 34.0 L Mean Corpuscular Volume 112.6 H Mean Corpuscular Hemoglobin 37.4 H Mean Corpuscular Hemoglobin Concent 33.2 Red Cell Distribution Width 11.9 Platelet Count 166 # Mean Platelet Volume 11.0 H Immature Granulocytes % 1.400 H Neutrophils % 58.8 Lymphocytes % 17.4 Monocytes % 20.4 H Eosinophils % 1.4 Basophils % 0.6 Nucleated Red Blood Cells % 0.0 Immature Granulocytes # 0.090 H Neutrophils # 3.8 Lymphocytes # 1.1 Monocytes # 1.3 H Eosinophils # 0.1 Basophils # 0.0 Nucleated Red Blood Cells # 0.0 Sodium Level 139 Potassium Level 3.9 Chloride Level 105 Carbon Dioxide Level 26 Anion Gap 8 Blood Urea Nitrogen 5 L Creatinine 0.50 Est Glomerular Filtrat Rate mL/min > 60 Glucose Level 100 Calcium Level 9.1 Medications Medication Current Medications IV Flush (NS 3 ml) 3 ml PER PROTOCOL IV ; Start 11/07/18 at 23:00 Ondansetron HCl (Zofran Inj) 4 mg Q6H PRN IV NAUSEA/VOMITING; Start 11/07/18 at 23:00 Acetaminophen (Tylenol Tab) 650 mg Q6H PRN PO .PAIN 1-3 OR TEMP; Start 11/07/18 at 23:00 Acetaminophen/ Hydrocodone Bitart ([place] (5/325)) 1 tab Q6H PRN PO .MOD PAIN 4- 6; Start 11/07/18 at 23:00 Morphine Sulfate (morphine) 2 mg Q4H PRN IV .SEVERE PAIN 7-10; Start 11/07/18 at 23:00 Docusate Sodium (Colace) 100 mg Q12H PRN PO .CONSTIPATION; Start 11/07/18 at 23:00 Magnesium Hydroxide (Milk Of Mag) 30 ml DAILY PRN PO .CONSTIPATION; Start 11/07/18 at 23:00 Heparin Sodium (Porcine) (Heparin (5000 Units/1ml)) 5,000 unit Q12 SC Last a dministered on 11/09/18at 08:59; Admin Dose 5,000 UNIT; Start 11/08/18 at 09:00 Lorazepam (Ativan) 1 mg Q1H PRN IV SEIZURES Last administered on 11/09/18at 00:55; Admin Dose 1 MG; Start 11/07/18 at 23:00 Sodium Chloride 1,000 ml @ 100 mls/hr Q10H IV Last administered on 11/09/18at 04:37; Admin Dose 100 MLS/HR; Start 11/07/18 at 22:33 Albuterol/ Ipratropium (Duoneb) 3 ml Q4H RESP THERAPY PRN HHN SHORTNESS OF BREATH; Start 11/07/18 at 23:00 Levofloxacin/ Dextrose 150 ml @ 100 mls/hr Q24H IVPB Last administered on 11/08/18at 23:10; Admin Dose 100 MLS/HR; Start 11/07/18 at 23:00 Hydralazine HCl (Apresoline) 10 mg Q6H PRN IV ELEVATED BLOOD PRESSURE; Start 11/07/18 at 23:00 Clonidine (Catapres) 0.1 mg Q6H PRN PO ELEVATED BLOOD PRESSURE; Start 11/07/18 at 23:00 Nitroglycerin (Nitroglycerin (Sl Tab) 0.4 Mg) 1 tab Q5M PRN SL ANGINA; Start 11/07/18 at 23:00 Multivitamins 10 ml/Thiamine HCl 100 mg/Folic Acid 1 mg/Sodium Chloride 1,011.2 ml @ 125 mls/ hr DAILY@09 IVPB Last administered on 11/09/18at 08:41; Admin Dose 125 MLS/HR; Start 11/08/18 at 09:00 Chlordiazepoxide (Librium) 50 mg TID PO Last administered on 11/09/18 08:42; Admin Dose 50 MG; Start 11/08/18 at 09:00 Lorazepam (Ativan) 1 mg Q1H PRN IV CONTROL WITHDRAWAL SYMPTOMS; Start 11/07/18 at 23:00 Phenol (Cepastat Lozenge) 1 lozenge Q1H PRN MT COUGH Last administered on 11/09/18at 09:02; Admin Dose 1 LOZENGE; Start 11/08/18 at 04:00 Famotidine (Pepcid) 20 mg Q12 PO Last administered on 11/09/18at 08:42; Admin Dose 20 MG; Start 11/08/18 at 21:00 ALO HOOD Nov 09, 2018 11:10
--- NOTE | 2018-11-09 12:21 | PN ---
Date/Time of Note Date/Time of Note DATE: 11/09/18 TIME: 12:17 Assessment/Plan VTE Prophylaxis Risk score (from Ns)>0 risk: 1 SCD applied (from Nsg): Yes Pharmacological prophylaxis: NA/contraindicated Pharm contraindication: low risk/ambulating Lines/Catheters IV Catheter Type (from Nrs): Peripheral IV Urinary Cath still in place: No Assessment/Plan Hospital Course Assessment 1. ALOC with suspect DTs. - Patient did report she was a heavy alcohol drinker from morning until night. She states that she stopped drinking on her own for over a week. - Continue on Librium - start to taper - Ativan every 30 minutes as needed for seizure activity. - Neurologist following. EEG results pending. - Continue hydration. - social sciences lecturer to follow 2. EtOH abuse. - Will get social sciences lecturer to follow. Cessation is advised. 3. History of anxiety/depression. - Stable at present - outpatient follow up Disposition of plan. Continue seizure precautions. EEG results pending. taper librium today Discussed plan of care with Dr. Flores Result Diagram: 11/09/18 0555 11/09/18 0555 Results 24hrs Laboratory Tests Test 11/09/18 05:55 White Blood Count 6.4 # Red Blood Count 3.02 L Hemoglobin 11.3 L Hematocrit 34.0 L Mean Corpuscular Volume 112.6 H Mean Corpuscular Hemoglobin 37.4 H Mean Corpuscular Hemoglobin Concent 33.2 Red Cell Distribution Width 11.9 Platelet Count 166 # Mean Platelet Volume 11.0 H Immature Granulocytes % 1.400 H Neutrophils % 58.8 Lymphocytes % 17.4 Monocytes % 20.4 H Eosinophils % 1.4 Basophils % 0.6 Nucleated Red Blood Cells % 0.0 Immature Granulocytes # 0.090 H Neutrophils # 3.8 Lymphocytes # 1.1 Monocytes # 1.3 H Eosinophils # 0.1 Basophils # 0.0 Nucleated Red Blood Cells # 0.0 Sodium Level 139 Potassium Level 3.9 Chloride Level 105 Carbon Dioxide Level 26 Anion Gap 8 Blood Urea Nitrogen 5 L Creatinine 0.50 Est Glomerular Filtrat Rate mL/min > 60 Glucose Level 100 Calcium Level 9.1 Subjective 24 Hr Interval Summary Free Text/Dictation Patient alert. Appears in better spirits today. No tremors noted. Exam/Review of Systems Exam Vitals Vital Signs Date Temp Pulse Resp B/P (MAP) Pulse Ox O2 O2 Flow FiO2 Time Delivery Rate 11/09/18 99.0 64 20 127/97 93 11:13 (107) 11/08/18 Room Air 03:36 Intake and Output 11/08/18 11/08/18 11/09/18 1515:00 23:00 07:00 IntakeIntake Total 100 ml 240 ml 2530 ml BalanceBalance 100 ml 240 ml 2530 ml Constitutional: alert, oriented Psych: nl mood/affect Neck: supple, non-tender Respiratory: clear to auscultation Cardiovascular: regular rate and rhythm Gastrointestinal: soft, non-tender Musculoskeletal: nl extremities to inspection Neurological: MARINE PILOT II-XII intact, nl mental status, nl speech Skin: nl turgor Results Results 24hrs Laboratory Tests Test 11/09/18 05:55 White Blood Count 6.4 # Red Blood Count 3.02 L Hemoglobin 11.3 L Hematocrit 34.0 L Mean Corpuscular Volume 112.6 H Mean Corpuscular Hemoglobin 37.4 H Mean Corpuscular Hemoglobin Concent 33.2 Red Cell Distribution Width 11.9 Platelet Count 166 # Mean Platelet Volume 11.0 H Immature Granulocytes % 1.400 H Neutrophils % 58.8 Lymphocytes % 17.4 Monocytes % 20.4 H Eosinophils % 1.4 Basophils % 0.6 Nucleated Red Blood Cells % 0.0 Immature Granulocytes # 0.090 H Neutrophils # 3.8 Lymphocytes # 1.1 Monocytes # 1.3 H Eosinophils # 0.1 Basophils # 0.0 Nucleated Red Blood Cells # 0.0 Sodium Level 139 Potassium Level 3.9 Chloride Level 105 Carbon Dioxide Level 26 Anion Gap 8 Blood Urea Nitrogen 5 L Creatinine 0.50 Est Glomerular Filtrat Rate mL/min > 60 Glucose Level 100 Calcium Level 9.1 Medications Medication Current Medications IV Flush (NS 3 ml) 3 ml PER PROTOCOL IV ; Start 11/07/18 at 23:00 Ondansetron HCl (Zofran Inj) 4 mg Q6H PRN IV NAUSEA/VOMITING; Start 11/07/18 at 23:00 Acetaminophen (Tylenol Tab) 650 mg Q6H PRN PO .PAIN 1-3 OR TEMP; Start 11/07/18 at 23:00 Acetaminophen/ Hydrocodone Bitart ([place] (5/325)) 1 tab Q6H PRN PO .MOD PAIN 4- 6; Start 11/07/18 at 23:00 Morphine Sulfate (morphine) 2 mg Q4H PRN IV .SEVERE PAIN 7-10; Start 11/07/18 at 23:00 Docusate Sodium (Colace) 100 mg Q12H PRN PO .CONSTIPATION; Start 11/07/18 at 23:00 Magnesium Hydroxide (Milk Of Mag) 30 ml DAILY PRN PO .CONSTIPATION; Start 11/07/18 at 23:00 Heparin Sodium (Porcine) (Heparin (5000 Units/1ml)) 5,000 unit Q12 SC Last administered on 11/09/18at 08:59; Admin Dose 5,000 UNIT; Start 11/08/18 at 09:00 Lorazepam (Ativan) 1 mg Q1H PRN IV SEIZURES Last administered on 11/09/18at 00:55; Admin Dose 1 MG; Start 11/07/18 at 23:00 Sodium Chloride 1,000 ml @ 100 mls/hr Q10H IV Last administered on 11/09/18at 04:37; Admin Dose 100 MLS/HR; Start 11/07/18 at 22:33 Albuterol/ Ipratropium (Duoneb) 3 ml Q4H RESP THERAPY PRN HHN SHORTNESS OF BREATH; Start 11/07/18 at 23:00 Levofloxacin/ Dextrose 150 ml @ 100 mls/hr Q24H IVPB Last administered on 11/08/18at 23:10; Admin Dose 100 MLS/HR; Start 11/07/18 at 23:00 Hydralazine HCl (Apresoline) 10 mg Q6H PRN IV ELEVATED BLOOD PRESSURE; Start 11/07/18 at 23:00 Clonidine (Catapres) 0.1 mg Q6H PRN PO ELEVATED BLOOD PRESSURE; Start 11/07/18 at 23:00 Nitroglycerin (Nitroglycerin (Sl Tab) 0.4 Mg) 1 tab Q5M PRN SL ANGINA; Start 11/07/18 at 23:00 Multivitamins 10 ml/Thiamine HCl 100 mg/Folic Acid 1 mg/Sodium Chloride 1,011.2 ml @ 125 mls/ hr DAILY@09 IVPB Last administered on 11/09/18at 08:41; Admin Dose 125 MLS/HR; Start 11/08/18 at 09:00 Lorazepam (Ativan) 1 mg Q1H PRN IV CONTROL WITHDRAWAL SYMPTOMS; Start 11/07/18 at 23:00 Phenol (Cepastat Lozenge) 1 lozenge Q1H PRN MT COUGH Last administered on 11/09/18at 09:02; Admin Dose 1 LOZENGE; Start 11/08/18 at 04:00 Famotidine (Pepcid) 20 mg Q12 PO Last administered on 11/09/18at 08:42; Admin Dose 20 MG; Start 11/08/18 at 21:00 Chlordiazepoxide (Librium) 25 mg TID PO ; Start 11/09/18 at 13:00 GHADA FOFANA NP Nov 09, 2018 12:21
[2018-11-09] MEDS: LEVOFLOXACIN 750MG/D5W (PMX) 150 ML IVPB SCH (23:38)
[2018-11-10] VITALS (9 sets, daily range): BP systolic 119–138; BP diastolic 83–95; PULSE 64–97; RESP 20
[2018-11-10] MEDS: MULTIVITAMINS 10 ML, THIAMINE 100 MG, FOLIC ACID 1 MG in SOD CHLORIDE 0.9% 1,000 ML IVPB SCH (08:29)
[2018-11-10] MEDS: FAMOTIDINE 20 MG TAB PO SCH (08:29)
[2018-11-10] MEDS: SOD CHLORIDE 0.9% 1,000 ML IV SCH (08:30)
[2018-11-10] MEDS: HEPARIN 5,000 UNIT/1 ML VIAL SC SCH (08:36)
[2018-11-10] MEDS: CHLORDIAZEPOXIDE 25 MG CAP PO SCH ×2 (09:00→13:00)
--- NOTE | 2018-11-10 11:38 | CONS ---
Assessment/Plan Assessment/Plan Assessment/Plan (Recall) 28 F c/ Hx of ETOH abuse...who presents for evaluation following recurrent seizures in the context of recent ETOH cessation. The clinical picture suggests provoked seizures due to ETOH withdrawal. Epilepsy is less likely.. Head CT is without obvious acute intracranial pathology. P: Await EEG to evaluate for epileptiform activity Hold Keppra for now, pending the above Ativan iv prn prolonged seizure or cluster Bosler as necessary Other management per primary Will follow clinically Consultation Date/Type/Reason Admit Date/Time Nov 07, 2018 at 19:53 Type of Consult Neurology Reason for Consultation seizures Requesting Provider: DEVIKA PETERSEN Date/Time of Note DATE: 11/10/18 TIME: 11:37 24 HR Interval Summary Free Text/Dictation Continues acute care Exam/Review of Systems Exam Vitals Vital Signs Date Temp Pulse Resp B/P (MAP) Pulse Ox O2 O2 Flow FiO2 Time Delivery Rate 11/10/18 64 09:33 11/10/18 98.7 20 128/89 97 07:42 (102) 11/08/18 Room Air 03:36 Intake and Output 11/09/18 11/09/18 11/10/18 1515:00 23:00 07:00 IntakeIntake Total 1950 ml 550 ml BalanceBalance 1950 ml 550 ml Results Result Diagram: 11/10/18 0630 11/10/18 0630 Results 24hrs Laboratory Tests Test 11/10/18 06:30 White Blood Count 6.1 Red Blood Count 3.18 L Hemoglobin 11.7 L Hematocrit 35.4 L Mean Corpuscular Volume 111.3 H Mean Corpuscular Hemoglobin 36.8 H Mean Corpuscular Hemoglobin Concent 33.1 Red Cell Distribution Width 12.1 Platelet Count 217 # Mean Platelet Volume 10.6 H Immature Granulocytes % 1.800 H Neutrophils % 57.3 Lymphocytes % 14.9 L Monocytes % 23.9 H Eosinophils % 1.3 Basophils % 0.8 Nucleated Red Blood Cells % 0.0 Immature Granulocytes # 0.110 H Neutrophils # 3.5 Lymphocytes # 0.9 Monocytes # 1.5 H Eosinophils # 0.1 Basophils # 0.1 Nucleated Red Blood Cells # 0.0 Sodium Level 141 Potassium Level 4.0 Chloride Level 107 Carbon Dioxide Level 27 Anion Gap 7 Blood Urea Nitrogen 3 L Creatinine 0.50 Est Glomerular Filtrat Rate mL/min > 60 Glucose Level 105 Calcium Level 9.4 Total Bilirubin 0.4 Direct Bilirubin 0.00 Indirect Bilirubin 0.4 Aspartate Amino Transf (AST/SGOT) 73 H Alanine Aminotransferase (ALT/SGPT) 54 Alkaline Phosphatase 75 Total Protein 6.6 Albumin 3.6 Medications Medication Current Medications IV Flush (NS 3 ml) 3 ml PER PROTOCOL IV ; Start 11/07/18 at 23:00 Ondansetron HCl (Zofran Inj) 4 mg Q6H PRN IV NAUSEA/VOMITING; Start 11/07/18 at 23:00 Acetaminophen (Tylenol Tab) 650 mg Q6H PRN PO .PAIN 1-3 OR TEMP; Start 11/07/18 at 23:00 Acetaminophen/ Hydrocodone Bitart ([place] (5/325)) 1 tab Q6H PRN PO .MOD PAIN 4- 6; Start 11/07/18 at 23:00 Morphine Sulfate (morphine) 2 mg Q4H PRN IV .SEVERE PAIN 7-10; Start 11/07/18 at 23:00 Docusate Sodium (Colace) 100 mg Q12H PRN PO .CONSTIPATION; Start 11/07/18 at 23:00 Magnesium Hydroxide (Milk Of Mag) 30 ml DAILY PRN PO .CONSTIPATION; Start 11/07/18 at 23:00 Heparin Sodium (Porcine) (Heparin (5000 Units/1ml)) 5,000 unit Q12 SC Last administered on 11/10/18at 08:36; Admin Dose 5,000 UNIT; Start 11/08/18 at 09:00 Lorazepam (Ativan) 1 mg Q1H PRN IV SEIZURES Last administered on 11/09/18at 00:55; Admin Dose 1 MG; Start 11/07/18 at 23:00 Sodium Chloride 1,000 ml @ 100 mls/hr Q10H IV Last administered on 11/10/18at 08:30; Admin Dose 100 MLS/HR; Start 11/07/18 at 22:33 Albuterol/ Ipratropium (Duoneb) 3 ml Q4H RESP THERAPY PRN HHN SHORTNESS OF BREATH; Start 11/07/18 at 23:00 Levofloxacin/ Dextrose 150 ml @ 100 mls/hr Q24H IVPB Last administered on 11/09/18at 23:38; Admin Dose 100 MLS/HR; Start 11/07/18 at 23:00 Hydralazine HCl (Apresoline) 10 mg Q6H PRN IV ELEVATED BLOOD PRESSURE; Start 11/07/18 at 23:00 Clonidine (Catapres) 0.1 mg Q6H PRN PO ELEVATED BLOOD PRESSURE; Start 11/07/18 at 23:00 Nitroglycerin (Nitroglycerin (Sl Tab) 0.4 Mg) 1 tab Q5M PRN SL ANGINA; Start 11/07/18 at 23:00 Multivitamins 10 ml/Thiamine HCl 100 mg/Folic Acid 1 mg/Sodium Chloride 1,011.2 ml @ 125 mls/ hr DAILY@09 IVPB Last administered on 11/10/18at 08:29; Admin Dose 125 MLS/HR; Start 11/08/18 at 09:00 Lorazepam (Ativan) 1 mg Q1H PRN IV CONTROL WITHDRAWAL SYMPTOMS; Start 11/07/18 at 23:00 Phenol (Cepastat Lozenge) 1 lozenge Q1H PRN MT COUGH Last administered on 11/09/18at 09:02; Admin Dose 1 LOZENGE; Start 11/08/18 at 04:00 Famotidine (Pepcid) 20 mg Q12 PO Last administered on 11/10/18at 08:29; Admin Dose 20 MG; Start 11/08/18 at 21:00 Chlordiazepoxide (Librium) 25 mg TID PO Last administered on 11/09/18at 20:40; Admin Dose 25 MG; Start 11/09/18 at 13:00 ALO HOOD Nov 10, 2018 11:38
--- NOTE | 2018-11-10 16:00 | DS ---
Date/Time of Note Date/Time of Note DATE: 11/10/18 TIME: 15:59 Discharge Summary Admission/Discharge Info Admit Date/Time Nov 07, 2018 at 19:53 Discharge Date/Time Discharge Diagnosis Alcohol withdrawal syndrome Patient Condition: Stable Hospital Course Adolfo presented with alcohol withdrawal wiht seizures as well. She was managed with librium. Keppra was given for seizures. She was extensively counseled on alcohol cessation. She endrosed depression but denied suicidality. Primary Care Provider Care Physician No Primary Pending Labs Laboratory Tests Test 11/10/18 06:30 White Blood Count 6.1 10^3/ul (4.8-10.8) Red Blood Count 3.18 10^6/ul (4.20-5.40) Hemoglobin 11.7 g/dl (12.0-16.0) Hematocrit 35.4 % (37.0-47.0) Mean Corpuscular Volume 111.3 fl (82.0-101.0) Mean Corpuscular Hemoglobin 36.8 pg (29.0-33.0) Mean Corpuscular Hemoglobin Concent 33.1 g/dl (32.0-37.0) Red Cell Distribution Width 12.1 % (11.5-14.5) Platelet Count 217 10^3/UL (140-415) Mean Platelet Volume 10.6 fl (7.4-10.4) Immature Granulocytes % 1.800 % (0.001-0.429) Neutrophils % 57.3 % (39.0-77.0) Lymphocytes % 14.9 % (15.0-51.0) Monocytes % 23.9 % (0.0-11.0) Eosinophils % 1.3 % (0.0-7.0) Basophils % 0.8 % (0.0-2.0) Nucleated Red Blood Cells % 0.0 /100WBC (0.0-0.0) Immature Granulocytes # 0.110 10^3/ul (0.0-0.031) Neutrophils # 3.5 10^3/ul (1.6-7.5) Lymphocytes # 0.9 10^3/ul (0.8-2.9) Monocytes # 1.5 10^3/ul (0.3-0.9) Eosinophils # 0.1 10^3/ul (0.0-0.5) Basophils # 0.1 10^3/ul (0.0-0.1) Nucleated Red Blood Cells # 0.0 10^3/ul (0.0-0.0) Sodium Level 141 mmol/L (135-144) Potassium Level 4.0 mmol/L (3.5-5.1) Chloride Level 107 mmol/L (97-110) Carbon Dioxide Level 27 mmol/L (21-31) Anion Gap 7 (5-13) Blood Urea Nitrogen 3 mg/dl (7-20) Creatinine 0.50 mg/dl (0.44-1.00) Est Glomerular Filtrat Rate mL/min > 60 mL/min (>60) Glucose Level 105 mg/dl (70-220) Calcium Level 9.4 mg/dl (8.4-10.2) Total Bilirubin 0.4 mg/dl (0.2-1.3) Direct Bilirubin 0.00 mg/dl (0.00-0.20) Indirect Bilirubin 0.4 mg/dl (0-1.1) Aspartate Amino Transf (AST/SGOT) 73 IU/L (15-46) Alanine Aminotransferase (ALT/SGPT) 54 IU/L (13-69) Alkaline Phosphatase 75 IU/L (42-121) Total Protein 6.6 g/dl (6.1-8.1) Albumin 3.6 g/dl (3.3-4.9) ARABELLA FAUSTIN MD Nov 10, 2018 16:00
--- NOTE | 2018-11-10 16:01 | PDOCDIS ---
Discharge Instructions DIAGNOSIS Discharge Diagnosis Alcohol withdrawal syndrome CONDITION [id number] Patient Condition: [id number] Stable FOLLOW UP/APPOINTMENTS Follow-up Plan Avoid alcohol consumption Seek care from a therapist to help with your mood symptoms Return to the emergency room if you have any concerning symptoms or thoughts of self harm ARABELLA FAUSTIN MD Nov 10, 2018 16:01
--- NOTE | 2018-11-11 06:49 | EEG ---
EEG NOTE Report Details DATE OF TEST: 11/10/2018 HISTORY: The patient is a 28-year-old F who presents with seizure. This EEG is requested to evaluate for an epileptic disorder. SEDATION: None. CONDITIONS OF RECORDING: This EEG was recorded digitally on the [email or web address] machine, using the International 10-20 System of electrodes plus anterior temporals and Nz. STATES SAMPLED: Wakefulness and drowsiness. FINDINGS: During wakefulness, there is a 12 Hz posterior dominant rhythm, which attenuates normally with eye opening. There is a normal [id number] frequency-amplitude gradient. The remainder of the awake background is normal. Photic stimulation does not elicit any definite driving responses or epileptiform discharges. Hyperventilation was not performed. The patient became drowsy but did not pass into sleep. No asymmetries, focal abnormalities or epileptiform discharges were seen. IMPRESSION: Normal electroencephalogram during wakefulness and drowsiness. COMMENT: A normal EEG does not of itself rule out an epileptic disorder, especially if sleep is not captured, but may decrease the probability of one depending on clinical context. ALO HOOD Nov 11, 2018 06:49
== END 2018-11-10 19:15 | disposition home or self-care (01) | DRG 897 ==
LOC: E/R 12:46 → TEL 19:53
PROVIDERS: ADMIT Hospitalist; ATTEND Internal Medicine
DX: F10.239 Alcohol dependence with withdrawal, unspecified (principal); R56.9 Unspecified convulsions; F32.9 Major depressive disorder, single episode, unspecified; F41.9 Anxiety disorder, unspecified; Z88.0 Allergy status to penicillin
CPT/HCPCS: 36415; 70450; 71045; 80048; 80053; 80061; 80076; 80307; 81001; 83036; 83735; 84100; 84439; 84443; 84703; 85025; 85610; 85730; 87086; 93005; 95819; 96374; 96375; 96376; 97161; J1644; J1953; J1956; J2060; J3411; J3475; J3480; J7030